=== PATIENT | male | born 1960 | race Caucasian/White ===

== ENCOUNTER 2017-01-08 12:45 | Emergency (ER) | payer MEDICARE, MEDICAID ==
[2017-01-08 13:20] VITALS: BP 149/77
[2017-01-08] MEDS ORDERED: cefTRIAXone 1 GM, Lidocaine 1% 2.1 ML IM ONE ×2 (13:24)
--- NOTE | 2017-01-08 13:51 | EDM.PDOC ---
ED HPI Skin/Rash - General Chief Complaint: Skin Complaint Stated Complaint: left upper arm redness Time Seen by Provider: 01/08/17 12:52 Source: Reports: Patient History Limitations: Reports: No limitations - History of Present Illness INITIAL COMMENTS - FREE TEXT/NARRATIVE: Patient had left sided AV fistula placed on 12/29/16 per his report. He reports that the incisions have always been red, but have started to worsen over the last several days. No fever or chills. Some swelling. No other complaints today. Has an appointment for staple removal tomorrow. Symptom Onset Date: 01/06/17 Timing: Reports: still present, worse Location, Skin: Reports: upper extremity, left Severity: mild Known Identified Source: possible/maybe Sick Contact: no Similar Symptoms Previously: no Recent Medical Care: yes - Related Data Allergies Allergy/AdvReac Type Severity Reaction Status Date / Time No Known Allergies Allergy Verified 01/08/17 13:17 Home Meds: Ambulatory Orders Medication Instructions Recorded Confirmed Aspirin [Halfprin] 81 mg PO DAILY 01/06/15 05/06/16 Hydrocodone/Acetaminophen [[place] 1 tab PO Q6H PRN 01/06/15 02/26/16 10-325] Labetalol [Normodyne] 2 tab PO BID 01/06/15 05/06/16 Lisinopril 1 tab PO DAILY 01/06/15 05/06/16 Pramipexole [Mirapex] 2 tab PO BEDTIME 01/06/15 05/06/16 Simvastatin [Zocor] 1 tab PO BEDTIME 01/06/15 05/06/16 amLODIPine [Norvasc] 1 tab PO DAILY 01/06/15 05/06/16 buPROPion HCl [Forfivo Xl] 1 tab PO DAILY 01/06/15 05/06/16 hydrALAZINE [Apresoline] 1 tab PO TID 01/06/15 05/06/16 traMADol HCl [Ultram] 2 tab PO Q6H PRN 01/06/15 05/06/16 Acetaminophen/Pamabrom [Cramp 1 each PO BID PRN 05/05/15 05/06/16 Tablet] Calcium Acetate 3 tab PO TID 05/06/16 05/06/16 Darbepoetin Jarod in Polysorbat 0 - 150 mcg IJ ASDIRECTED 05/06/16 05/06/16 [Aranesp] Doxercalciferol [Hectorol] 0 - 10 mcg IV ASDIRECTED 05/06/16 05/06/16 Ergocalciferol (Vitamin D2) 1 tab PO ASDIRECTED 05/06/16 05/06/16 [Vitamin D2] Melatonin 5 mg PO BEDTIME 05/06/16 05/06/16 Sodium Ferric Gluconat/Sucrose 0 - 125 mg IV ASDIRECTED 05/06/16 05/06/16 [Ferrlecit 62.5 mg/5 ml Vial] Triamcinolone Acetonide 5 gm DT ASDIRECTED 05/06/16 05/06/16 Vit B Cmplx NO3/Fa/C/Biot/Zinc 1 each PO DAILY 05/06/16 05/06/16 [Nephplex Rx] Past Medical History Cardiovascular History: Reports: Angina, CAD, Heart Failure, High cholesterol, Hypertension, PVD Respiratory History: Reports: Other (see below) Other Respiratory History: dyspnea Gastrointestinal History: Reports: GERD, Hepatitis, PUD Genitourinary History: Reports: Dialysis, Renal disease, Other (see below) Other Genitourinary History: proteinuria. CKD Stage V Musculoskeletal History: Reports: Back pain, chronic Neurological History: Reports: Neuropathy, diabetic Psychiatric History: Reports: Depression Endocrine/Metabolic History: Reports: Diabetes, type II Hematologic History: Reports: Anemia Dermatologic History: Reports: Eczema - Infectious Disease History Infectious Disease History: Reports: Hepatitis C - Past Surgical History Musculoskeletal Surgical History: Reports: Carpal tunnel, Other (see below) Other Musculoskeletal Surgeries/Procedures:: ulnar nerve entrapment R elbow Social & Family History - Tobacco Use Smoking Status *Q: Current Every Day Smoker Years of Tobacco use: 44 Packs/Tins Daily: 0.5 - Alcohol Use Days Per Week of Alcohol Use: 2 Number of Drinks Per Day: 1 Total Drinks Per Week: 2 - Recreational Drug Use Recreational Drug Use: Yes Drug Use in Last 12 Months: No Recreational Drug Type: Reports: Marijuana/Hashish ED ROS GENERAL - Review of Systems Review Of Systems: See Below Constitutional: Reports: no symptoms HEENT: Reports: No symptoms Respiratory: Reports: No Symptoms Cardiovascular: Reports: No symptoms Endocrine: Reports: no symptoms GI/Abdominal: Reports: No symptoms : Reports: no symptoms Musculoskeletal: Reports: arm pain Skin: Reports: erythema (left upper arm in 2 locations), wound Neurological: Reports: No Symptoms Psychiatric: Reports: No symptoms Hematologic/Lymphatic: Reports: no symptoms Immunologic: Reports: no symptoms ED EXAM, SKIN/RASH Exam: See Below Exam Limited By: No limitations General Appearance: alert, WD/WN, no apparent distress Eye Exam: bilateral eye: EOMI, PERRL Head: atraumatic, normocephalic Neck: normal inspection Respiratory/Chest: no respiratory distress, lungs clear, normal breath sounds, no accessory muscle use, chest non-tender Cardiovascular: normal peripheral pulses, regular rate, rhythm, no edema Peripheral Pulses: 2+: brachial (L) (left av fistula + for both bruit and thrill ), brachial (R) GI/Abdominal: normal bowel sounds, soft, non tender Back Exam: normal inspection, full range of motion Extremities: normal inspection, normal range of motion, non-tender, no pedal edema Neurological: alert, oriented, CN II-XII intact Skin: Warm, Dry, Intact, Erythema, Increased warmth, Wound/incision (left bicep area with two incisions - erythema, swelling) Lymphatic: no adenopathy Course - Vital Signs Last Recorded V/S: Last Vital Signs Temp 37.1 C 01/08/17 12:45 Pulse 93 01/08/17 12:45 Resp 20 01/08/17 12:45 BP 149/77 H 01/08/17 12:45 Pulse Ox - Orders/Labs/Meds Labs: Laboratory Tests 01/08/17 01/08/17 Range/Units 13:17 13:17 WBC 6.2 (4.0-10.0) x10^3/uL RBC 3.73 L (4.5-6.0) x10^6/uL Hgb 12.8 L (14.0-18.0) g/dL Hct 37.6 L (40.0-52.0) % MCV 100.8 H (78.0-93.0) fL MCH 34.3 H (26.0-32.0) pg MCHC 34.0 (32.0-36.0) g/dL RDW Coeff of Wale 13.3 (10.0-15.0) % Plt Count 87 L (130-400) x10^3/uL C-Reactive Protein 0.9 (<=0.9) mg/dL Meds: Medications Discontinued Medications Generic Name Dose Route Start Last Admin Trade Name Rory PRN Reason Stop Dose Admin Ceftriaxone Sodium 1 gm/ 0 gm 01/08/17 13:24 01/08/17 13:38 Lidocaine HCl 2.1 ml IM 01/08/17 13:25 1 inj ONETIME ONE Administration Departure - Departure Time of Disposition: 14:00 Disposition: Home, Self-Care 01 Condition: good Clinical Impression: Cellulitis Instructions: Cellulitis, Adult, [id number] Forms: ED Department Discharge Additional Instructions: Keep your appointment tomorrow for your staple removal. Follow up with your regular doctor and surgeon. You should follow up regarding the redness of your incision as well. I did start you on KEFLEX which is taken 4 times per day. Please call us with any questions or concerns. - Problem List & Annotations (1) Cellulitis SNOMED Code(s): 320198126 Code(s): L03.90 - CELLULITIS, UNSPECIFIED Status: Acute Priority: Medium Current Visit: Yes Qualifiers: Site of cellulitis of extremity: upper extremity Laterality: left - Problem List Review Problem List Initiated/Reviewed/Updated: Yes - Assessment/Plan Assessment:: Cellulitis left upper extremity Plan: Keep your appointment tomorrow for your staple removal. Follow up with your regular doctor and surgeon. You should follow up regarding the redness of your incision as well. I did start you on KEFLEX which is taken 4 times per day. Please call us with any questions or concerns.
== END 2017-01-08 13:10 | disposition home or self-care (01) ==
LOC: VM.ED 12:45
DX: L03.114 Cellulitis of left upper limb (principal); E78.00 Pure hypercholesterolemia, unspecified; K21.9 Gastro-esophageal reflux disease without esophagitis; I13.2 Hypertensive heart and chronic kidney disease with heart failure and with stage 5 chronic kidney disease, or end stage renal disease; I50.9 Heart failure, unspecified; N18.5 Chronic kidney disease, stage 5; E11.9 Type 2 diabetes mellitus without complications; F32.9 Major depressive disorder, single episode, unspecified; F17.210 Nicotine dependence, cigarettes, uncomplicated
CPT/HCPCS: 36415; 85027; 86140; 96372; 99283; J0696

== ENCOUNTER 2017-03-10 09:36 | Emergency (ER) | payer MEDICARE, MEDICAID ==
--- NOTE | 2017-03-10 09:51 | EDM.PDOC ---
ED HPI GENERAL MEDICAL PROBLEM - General Chief Complaint: Respiratory Problem Stated Complaint: SOB Time Seen by Provider: 03/10/17 09:39 Source of Information: Reports: Patient, RN, RN Notes Reviewed History Limitations: Reports: No Limitations - History of Present Illness INITIAL COMMENTS - FREE TEXT/NARRATIVE: Patient presents to the ED at [facility] with SOB and hypoxia. Patient was at his regular PCP office this AM and found to have low saturations. PCP requested for this patient to have further workup. Patient states he recently was treated for pneumonia. He denies any cough but does feel SOB. No chest pain. Admits to [place] with activity. Patient has CKD stage 5 and is scheduled for outpatient dialysis today. Patient states he has significant swelling around both eyes. He states he noticed the swelling when he awoke this AM. Patient currently denies any pain. No GI complaints. No focal neurological deficits. Onset: Today Left Lower Back Pain Score (Numeric/FACES): 3 - Related Data Allergies Allergy/AdvReac Type Severity Reaction Status Date / Time No Known Allergies Allergy Verified 03/10/17 10:02 Home Meds: Home Meds Aspirin [Halfprin] 81 mg PO DAILY 01/06/15 [History] Labetalol [Normodyne] 200 mg PO BID 01/06/15 [History] Lisinopril 20 mg PO DAILY 01/06/15 [History] Simvastatin [Zocor] 1 tab PO BEDTIME 01/06/15 [History] Acetaminophen/Pamabrom [Cramp Tablet] 1 each PO BID PRN 05/05/15 [History] Calcium Acetate 3 tab PO TID 05/06/16 [History] Darbepoetin Jarod in Polysorbat [Aranesp] 0 - 150 mcg IJ ASDIRECTED 05/06/16 [ History] Doxercalciferol [Hectorol] 0 - 10 mcg IV ASDIRECTED 05/06/16 [History] Ergocalciferol (Vitamin D2) [Vitamin D2] 1 tab PO ASDIRECTED 05/06/16 [History] Melatonin 5 mg PO BEDTIME 05/06/16 [History] Sodium Ferric Gluconat/Sucrose [Ferrlecit 62.5 mg/5 ml Vial] 0 - 125 mg IV ASDIRECTED 05/06/16 [History] Triamcinolone Acetonide 1 applic TOP DAILY 05/06/16 [History] Vit B Cmplx NO3/Fa/C/Biot/Zinc [Nephplex Rx] 1 each PO DAILY 05/06/16 [History] Elbasvir/Grazoprevir [Zepatier 50-100 mg Tablet] 1 tab PO DAILY 02/28/17 [ History] Pregabalin [Lyrica] 75 mg PO BID 02/28/17 [History] prednisoLONE Acetate [Pred Forte 1% Ophth Susp] 1 drop EYELF DAILY 02/28/17 [ History] Olmesartan [Benicar] 5 mg PO DAILY 03/10/17 [History] Pramipexole [Mirapex] 0.5 mg PO BEDTIME 03/10/17 [History] buPROPion [Wellbutrin XL] 150 mg PO DAILY 03/10/17 [History] hydrALAZINE HCl [Hydralazine HCl] 100 mg PO TID 03/10/17 [History] Past Medical History Cardiovascular History: Reports: Angina, CAD, Heart Failure, High Cholesterol, Hypertension, PVD Respiratory History: Reports: Other (See Below) Other Respiratory History: dyspnea Gastrointestinal History: Reports: GERD, Hepatitis, PUD Genitourinary History: Reports: Dialysis, Renal Disease, Other (See Below) Other Genitourinary History: proteinuria. CKD Stage V Musculoskeletal History: Reports: Back Pain, Chronic Neurological History: Reports: Neuropathy, Diabetic Psychiatric History: Reports: Depression Endocrine/Metabolic History: Reports: Diabetes, Type II Hematologic History: Reports: Anemia Dermatologic History: Reports: Eczema - Infectious Disease History Infectious Disease History: Reports: Hepatitis C - Past Surgical History Musculoskeletal Surgical History: Reports: Carpal Tunnel, Other (See Below) Social & Family History - Tobacco Use Smoking Status *Q: Current Every Day Smoker Years of Tobacco use: 44 Packs/Tins Daily: 0.5 - Alcohol Use Days Per Week of Alcohol Use: 2 Number of Drinks Per Day: 1 Total Drinks Per Week: 2 - Recreational Drug Use Recreational Drug Use: Yes Drug Use in Last 12 Months: No Recreational Drug Type: Reports: Marijuana/Hashish ED ROS GENERAL - Review of Systems Review Of Systems: See Below Constitutional: Denies: Fever, Chills, Weakness Respiratory: Reports: Shortness of Breath. Denies: Cough, Sputum Cardiovascular: Reports: Dyspnea on Exertion. Denies: Chest Pain, Palpitations GI/Abdominal: Denies: Abdominal Pain, Nausea, Vomiting Skin: Reports: No Symptoms Neurological: Reports: No Symptoms. Denies: Headache ED EXAM, GENERAL - Physical Exam Exam: See Below Exam Limited By: No Limitations General Appearance: Alert, No Apparent Distress Eye Exam: Bilateral Eye: EOMI, Normal Inspection, PERRL Respiratory/Chest: No Respiratory Distress, Decreased Breath Sounds Cardiovascular: Regular Rate, Rhythm, Other (chronic BLE venous statsis ulcers; some open areas on lower legs; left hand swelling; +2 BLE edema) GI/Abdominal: Soft, Non-Tender, Abnormal Bowel Sounds (Hypoactive) Extremities: Pedal Edema Neurological: Alert, Oriented Skin Exam: Warm, Dry, Normal Color, No Rash, Other (scattered open sores on lower legs and arms) EKG INTERPRETATION EKG Date: 03/10/17 Time: 10:45 Rhythm: NSR Rate (beats/min): 78 [place]: normal P-wave: present QRS: normal ST-T: depressed QT: normal [place]/PQ Interval: 0.21 EKG Interpretation Comments: 1. Sinus Rhythm 2. Minimal ST depression (0.025+ mV ST depression) Course - Vital Signs Last Recorded V/S: Last Vital Signs Temp 35.9 C 03/10/17 09:36 Pulse 84 03/10/17 09:36 Resp 20 03/10/17 09:36 BP 162/78 H 03/10/17 09:36 Pulse Ox 85 L 03/10/17 09:36 - Orders/Labs/Meds Orders: Active Orders 24 hr Category Date Time Status EKG 12 Lead [EKG Documentation Completion] [RC] STAT Care 03/10/17 10:14 Active Chest 2V [CR] Stat Exams 03/10/17 09:53 Taken DRUG SCREEN, URINE [URCHEM] Stat Lab 03/10/17 09:53 Uncollected UA W/MICROSCOPIC [URIN] Stat Lab 03/10/17 09:53 Uncollected Sodium Chloride 0.9% [Saline Flush] Med 03/10/17 09:52 Active 10 ml FLUSH ASDIRECTED PRN Peripheral IV Insertion Adult [OM.PC] Routine Oth 03/10/17 09:52 Ordered Medication Orders Sodium Chloride (Saline Flush) 10 ml FLUSH ASDIRECTED PRN PRN Reason: Keep Vein Open Labs: Laboratory Tests 03/10/17 03/10/17 03/10/17 Range/Units 10:00 10:00 10:00 WBC 9.2 (4.0-10.0) x10^3/uL RBC 3.35 L (4.5-6.0) x10^6/uL Hgb 11.3 L D (14.0-18.0) g/dL Hct 35.0 L (40.0-52.0) % MCV 104.5 H D (78.0-93.0) fL MCH 33.7 H (26.0-32.0) pg MCHC 32.3 (32.0-36.0) g/dL RDW Coeff of Wale 13.2 (10.0-15.0) % Plt Count 107 L (130-400) x10^3/uL Add Manual Diff Yes Neutrophils % (Manual) 89 H (50-80) % Band Neutrophils % 1 (0-6) % Lymphocytes % (Manual) 10 L (25-50) % Platelet Estimate Decreased L Macrocytosis 1+ slight H D-Dimer, Quantitative 2.85 H (<=0.58) mg/LFEU POC ABG pH (7.35-7.45) POC ABG pCO2 (35-45) mmHG POC ABG pO2 (80-105) mmHG POC ABG HCO3 (22-26) mmol/L POC ABG Total CO2 (23-27) mmol/L POC ABG O2 Sat (95-98) % POC ABG Base Excess (-2-3) mmol/L POC FiO2 Sodium 142 (136-145) mmol/L Potassium 4.0 (3.5-5.1) mmol/L Chloride 100 (98-107) mmol/L Carbon Dioxide 29 (21-32) mmol/L BUN 49 H D (7-18) mg/dL Creatinine 8.7 H* D (0.70-1.30) mg/dL Est Cr Clr Drug Dosing 9.17 mL/min Estimated GFR (MDRD) 6 Glucose 132 H (74-106) mg/dL Lactic Acid (0.4-2.0) mmol/L Calcium 8.2 L (8.5-10.1) mg/dL Corrected Calcium 8.60 (8.5-10.1) mg/dL Total Bilirubin 0.4 (0.2-1.0) mg/dL AST 29 (15-37) U/L ALT 30 (16-63) U/L Alkaline Phosphatase 151 H (46-116) U/L Creatine Kinase (39-308) U/L Creatine Kinase Index (0.0-4.0) % CK-MB (CK-2) (0.0-3.6) ng/mL Troponin I (<=0.056) ng/mL C-Reactive Protein 1.0 H (<=0.9) mg/dL B-Natriuretic Peptide 6923 H (<=125) pg/mL Total Protein 8.1 (6.4-8.2) g/dL Albumin 3.5 (3.4-5.0) g/dL Globulin 4.6 Albumin/Globulin Ratio 0.76 POC Result Comm Ethyl Alcohol < 3 (0-3) mg/dL 03/10/17 03/10/17 03/10/17 Range/Units 10:00 10:00 10:22 WBC (4.0-10.0) x10^3/uL RBC (4.5-6.0) x10^6/uL Hgb (14.0-18.0) g/dL Hct (40.0-52.0) % MCV (78.0-93.0) fL MCH (26.0-32.0) pg MCHC (32.0-36.0) g/dL RDW Coeff of Wale (10.0-15.0) % Plt Count (130-400) x10^3/uL Add Manual Diff Neutrophils % (Manual) (50-80) % Band Neutrophils % (0-6) % Lymphocytes % (Manual) (25-50) % Platelet Estimate Macrocytosis D-Dimer, Quantitative (<=0.58) mg/LFEU POC ABG pH 7.373 (7.35-7.45) POC ABG pCO2 54 H (35-45) mmHG POC ABG pO2 45 L* (80-105) mmHG POC ABG HCO3 32 H (22-26) mmol/L POC ABG Total CO2 33 H (23-27) mmol/L POC ABG O2 Sat 78 L (95-98) % POC ABG Base Excess 6 H (-2-3) mmol/L POC FiO2 0.21 Sodium (136-145) mmol/L Potassium (3.5-5.1) mmol/L Chloride (98-107) mmol/L Carbon Dioxide (21-32) mmol/L BUN (7-18) mg/dL Creatinine (0.70-1.30) mg/dL Est Cr Clr Drug Dosing mL/min Estimated GFR (MDRD) Glucose (74-106) mg/dL Lactic Acid 1.2 (0.4-2.0) mmol/L Calcium (8.5-10.1) mg/dL Corrected Calcium (8.5-10.1) mg/dL Total Bilirubin (0.2-1.0) mg/dL AST (15-37) U/L ALT (16-63) U/L Alkaline Phosphatase (46-116) U/L Creatine Kinase 295 (39-308) U/L Creatine Kinase Index 2.3 (0.0-4.0) % CK-MB (CK-2) 6.9 H (0.0-3.6) ng/mL Troponin I 0.027 (<=0.056) ng/mL C-Reactive Protein (<=0.9) mg/dL B-Natriuretic Peptide (<=125) pg/mL Total Protein (6.4-8.2) g/dL Albumin (3.4-5.0) g/dL Globulin Albumin/Globulin Ratio POC Result Comm Called critical res Ethyl Alcohol (0-3) mg/dL Meds: Medications Generic Name Dose Route Start Last Admin Trade Name Freq PRN Reason Stop Dose Admin Sodium Chloride 10 ml 03/10/17 09:52 Saline Flush FLUSH ASDIRECTED PRN Keep Vein Open Departure - Departure Time of Disposition: 11:44 Disposition: Against Medical Advice 07 Condition: serious Clinical Impression: Hypoxia, Chronic kidney disease on chronic dialysis Heart failure Qualifiers: Heart failure type: combined Heart failure chronicity: acute on chronic Qualified Code(s): I50.43 - Acute on chronic combined systolic (congestive) and diastolic (congestive) heart failure Fluid overload Qualifiers: Hypervolemia type: unspecified Qualified Code(s): E87.70 - Fluid overload, unspecified - Discharge Information Referrals: Elizabet Silverio MD [Primary Care Provider] - Forms: Refusal of Care AMA - Problem List Review Problem List Initiated/Reviewed/Updated: Yes - My Orders Last 24 Hours: My Active Orders 03/10/17 09:52 Sodium Chloride 0.9% [Saline Flush] 10 ml FLUSH ASDIRECTED PRN Peripheral IV Insertion Adult [OM.PC] Routine 03/10/17 09:53 Chest 2V [CR] Stat DRUG SCREEN, URINE [URCHEM] Stat UA W/MICROSCOPIC [URIN] Stat 03/10/17 10:14 EKG 12 Lead [EKG Documentation Completion] [RC] STAT - Assessment/Plan Last 24 Hours: My Active Orders 03/10/17 09:52 Sodium Chloride 0.9% [Saline Flush] 10 ml FLUSH ASDIRECTED PRN Peripheral IV Insertion Adult [OM.PC] Routine 03/10/17 09:53 Chest 2V [CR] Stat DRUG SCREEN, URINE [URCHEM] Stat UA W/MICROSCOPIC [URIN] Stat 03/10/17 10:14 EKG 12 Lead [EKG Documentation Completion] [RC] STAT Plan: Thoroughly and extensively discussed labs, EKG, xray with patient. Discussed the need to have dialysis today due to critical nature of his low oxygen levels. Patient refused transfer to a higher level of care. He wishes to go home. Discussed the adverse problems without dialysis today, such as [place], cardiac arrest, respiratory arrest, and . Patient verbalized understanding and wishes to be discharge home.
[2017-03-10] MEDS ORDERED: Sodium Chloride 0.9% 10 ML Syringe FLUSH PRN (09:52)
[2017-03-10 11:01] LABS: CHLORIDE,CL 100 mmol/L (98-107); SODIUM,NA 142 mmol/L (136-145)
[2017-03-10 12:11] VITALS: BP 150/66
== END 2017-03-10 13:05 | disposition left against medical advice (07) ==
LOC: VM.ED 09:36
DX: I13.2 Hypertensive heart and chronic kidney disease with heart failure and with stage 5 chronic kidney disease, or end stage renal disease (principal); I50.43 Acute on chronic combined systolic (congestive) and diastolic (congestive) heart failure; N18.5 Chronic kidney disease, stage 5; E87.70 Fluid overload, unspecified; R09.02 Hypoxemia; E78.00 Pure hypercholesterolemia, unspecified; K21.9 Gastro-esophageal reflux disease without esophagitis; I25.10 Atherosclerotic heart disease of native coronary artery without angina pectoris; F32.9 Major depressive disorder, single episode, unspecified; E11.9 Type 2 diabetes mellitus without complications; F17.210 Nicotine dependence, cigarettes, uncomplicated; Z98.890 Other specified postprocedural states; Z86.2 Personal history of diseases of the blood and blood-forming organs and certain disorders involving the immune mechanism; Z79.82 Long term (current) use of aspirin; Z99.2 Dependence on renal dialysis; Z79.899 Other long term (current) drug therapy
CPT/HCPCS: 36415; 36600; 71020; 80053; 82550; 82553; 82803; 83605; 83880; 84484; 85025; 85379; 86140; 93005; 99285; G0480; 99284-GF

== ENCOUNTER 2017-06-21 20:17 | Emergency (ER) | payer MEDICARE, MEDICAID ==
[2017-06-21] MEDS ORDERED: Sodium Chloride 0.9% 10 ML Syringe FLUSH PRN (20:25)
--- NOTE | 2017-06-21 21:07 | EDM.PDOC ---
ED HPI GENERAL MEDICAL PROBLEM - General Chief Complaint: Abdominal Pain Stated Complaint: abdominal pain with radiation into back Time Seen by Provider: 06/21/17 20:20 Source of Information: Reports: Patient History Limitations: Reports: No Limitations - History of Present Illness INITIAL COMMENTS - FREE TEXT/NARRATIVE: Pt. presents to ER with a 4 days history of abdominal pain with radiation into the back. Pt. has a history of ESRD and is currently undergoing triweekly hemodialyis at the [facility] in [place]. Pt. states that he had a dialysis run earlier today. Pt. states that the pain in located in his lower abdomen and radiates into his mid/lower back. He states that he has not been experiencing any fever or chills. He states that his last BM was approx. 4 days ago as well. Pt. also has a history of chronic low back pain. He denies any saddle anesthesia or fecal/urinary incontinence. Onset: Gradual, Other (4 days ago) Onset Date: 06/17/17 Location: Reports: Abdomen, Back (lower abdominal pain with radiation into mid to low back) Quality: Reports: Same as Previous Episode Severity: Severe Improves with: Reports: None Associated Symptoms: Reports: No Other Symptoms Back Pain Score (Numeric/FACES): 10 - Related Data Allergies Allergy/AdvReac Type Severity Reaction Status Date / Time No Known Allergies Allergy Verified 06/21/17 20:20 Home Meds: Home Meds Aspirin [Halfprin] 81 mg PO DAILY 01/06/15 [History] Labetalol [Normodyne] 200 mg PO BID 01/06/15 [History] Lisinopril 20 mg PO DAILY 01/06/15 [History] Simvastatin [Zocor] 1 tab PO BEDTIME 01/06/15 [History] Acetaminophen/Pamabrom [Cramp Tablet] 1 each PO BID PRN 05/05/15 [History] Calcium Acetate 3 tab PO TID 05/06/16 [History] Darbepoetin Jarod in Polysorbat [Aranesp] 0 - 150 mcg IJ ASDIRECTED 05/06/16 [ History] Doxercalciferol [Hectorol] 0 - 10 mcg IV ASDIRECTED 05/06/16 [History] Ergocalciferol (Vitamin D2) [Vitamin D2] 1 tab PO ASDIRECTED 05/06/16 [History] Melatonin 5 mg PO BEDTIME 05/06/16 [History] Sodium Ferric Gluconat/Sucrose [Ferrlecit 62.5 mg/5 ml Vial] 0 - 125 mg IV ASDIRECTED 05/06/16 [History] Triamcinolone Acetonide 1 applic TOP DAILY 05/06/16 [History] Vit B Cmplx NO3/Fa/C/Biot/Zinc [Nephplex Rx] 1 each PO DAILY 05/06/16 [History] Pregabalin [Lyrica] 75 mg PO BID 02/28/17 [History] prednisoLONE Acetate [Pred Forte 1% Ophth Susp] 1 drop EYELF DAILY 02/28/17 [ History] Pramipexole [Mirapex] 0.5 mg PO BEDTIME 03/10/17 [History] buPROPion [Wellbutrin XL] 150 mg PO DAILY 03/10/17 [History] hydrALAZINE HCl [Hydralazine HCl] 100 mg PO TID 03/10/17 [History] tiZANidine HCl [Tizanidine HCl] 2 mg PO ASDIRECTED PRN 06/21/17 [History] Past Medical History Cardiovascular History: Reports: Angina, CAD, Heart Failure, High Cholesterol, Hypertension, PVD Respiratory History: Reports: Other (See Below) Other Respiratory History: dyspnea Gastrointestinal History: Reports: GERD, Hepatitis, PUD Genitourinary History: Reports: Dialysis, Renal Disease, Other (See Below) Other Genitourinary History: proteinuria. CKD Stage V Musculoskeletal History: Reports: Back Pain, Chronic Neurological History: Reports: Neuropathy, Diabetic Psychiatric History: Reports: Depression Endocrine/Metabolic History: Reports: Diabetes, Type II Hematologic History: Reports: Anemia Dermatologic History: Reports: Eczema - Infectious Disease History Infectious Disease History: Reports: Hepatitis C - Past Surgical History Musculoskeletal Surgical History: Reports: Carpal Tunnel Social & Family History - Tobacco Use Smoking Status *Q: Current Every Day Smoker Years of Tobacco use: 45 Packs/Tins Daily: 0.1 - Alcohol Use Days Per Week of Alcohol Use: 2 Number of Drinks Per Day: 1 Total Drinks Per Week: 2 - Recreational Drug Use Recreational Drug Use: Yes Drug Use in Last 12 Months: No Recreational Drug Type: Reports: Marijuana/Hashish ED ROS GENERAL - Review of Systems Review Of Systems: See Below Constitutional: Reports: Fever (Denies fever or chills; febrile in ER today. Has not been checking temp. Has had fever after dialysis in the past.) HEENT: Reports: No Symptoms Respiratory: Reports: No Symptoms, Shortness of Breath (ESRD, COPD and CHF history, has chronic dyspnea) Cardiovascular: Reports: No Symptoms Endocrine: Reports: No Symptoms GI/Abdominal: Reports: Abdominal Pain (last BM approx. 4 days ago), Constipation : Reports: No Symptoms Musculoskeletal: Reports: Back Pain (States pain radiates into mid/lower back but has a history of chronic back pain) Skin: Reports: Dryness, Bruising (Chronic, on dialysis) Neurological: Reports: No Symptoms Psychiatric: Reports: No Symptoms Hematologic/Lymphatic: Reports: No Symptoms Immunologic: Reports: No Symptoms ED EXAM, GI/ABD - Physical Exam Exam: See Below Exam Limited By: No Limitations General Appearance: Alert, No Apparent Distress Ears: Normal External Exam, Hearing Grossly Normal, Normal TMs Nose: Normal Inspection Throat/Mouth: Normal Inspection, Normal Oropharynx, No Airway Compromise Head: Atraumatic, Normocephalic Neck: Normal Inspection, Supple, Non-Tender Respiratory/Chest: No Respiratory Distress, Lungs Clear, No Accessory Muscle Use , Decreased Breath Sounds Cardiovascular: Regular Rate, Rhythm GI/Abdominal Exam: Normal Bowel Sounds, Soft, No Distention, Tender (diffusely tender, particularly in the lower quadrants) Back Exam: Normal Inspection, CVA Tenderness (L), Muscle Spasm, Paraspinal Tenderness Neurological: Alert, Oriented, CN II-XII Intact, Normal Cognition Skin Exam: Warm, Dry Lymphatic: No Adenopathy Course - Vital Signs Last Recorded V/S: Last Vital Signs Temp 38.7 C H 06/21/17 22:05 Pulse 113 H 06/21/17 22:05 Resp 20 06/21/17 22:05 BP 131/72 06/21/17 22:05 Pulse Ox 84 L 06/21/17 22:05 - Orders/Labs/Meds Orders: Active Orders 24 hr Category Date Time Status Abdomen Series w Chest 1V [CR] Stat Exams 06/21/17 20:26 Taken CULTURE BLOOD [BC] Stat Lab 06/21/17 20:58 Results CULTURE BLOOD [BC] Stat Lab 06/21/17 21:04 Received Blood Culture x2 Reflex Set [OM.PC] Stat Oth 06/21/17 20:26 Ordered Peripheral IV Insertion Adult [OM.PC] Routine Oth 06/21/17 20:26 Ordered Labs: Laboratory Tests 06/21/17 06/21/17 06/21/17 Range/Units 20:58 20:58 20:58 WBC 9.5 (4.0-10.0) x10^3/uL RBC 3.80 L (4.5-6.0) x10^6/uL Hgb 12.8 L D (14.0-18.0) g/dL Hct 37.8 L (40.0-52.0) % MCV 99.5 H D (78.0-93.0) fL MCH 33.7 H (26.0-32.0) pg MCHC 33.9 (32.0-36.0) g/dL RDW Coeff of Wale 12.9 (10.0-15.0) % Plt Count 134 (130-400) x10^3/uL Neut % (Auto) 80.3 H (50.0-80.0) % Lymph % (Auto) 10.0 L (25.0-50.0) % Spink % (Auto) 8.5 (2.0-11.0) % Eos % (Auto) 0.9 (0.0-4.0) % Baso % (Auto) 0.3 (0.2-1.2) % PT 11.5 (9.8-11.8) SEC INR 1.1 L (2.0-3.5) Sodium 138 (136-145) mmol/L Potassium 3.5 (3.5-5.1) mmol/L Chloride 94 L (98-107) mmol/L Carbon Dioxide 33 H (21-32) mmol/L BUN 17 D (7-18) mg/dL Creatinine 4.5 H* D (0.70-1.30) mg/dL Est Cr Clr Drug Dosing 17.73 mL/min Estimated GFR (MDRD) 14 Glucose 127 H (74-106) mg/dL Lactic Acid (0.4-2.0) mmol/L Calcium 9.1 (8.5-10.1) mg/dL Corrected Calcium 9.82 (8.5-10.1) mg/dL Total Bilirubin 0.6 (0.2-1.0) mg/dL AST 16 (15-37) U/L ALT 18 (16-63) U/L Alkaline Phosphatase 132 H (46-116) U/L Troponin I Cancelled C-Reactive Protein 25.1 H (<=0.9) mg/dL Total Protein 8.5 H (6.4-8.2) g/dL Albumin 3.1 L (3.4-5.0) g/dL Globulin 5.4 Albumin/Globulin Ratio 0.57 Urine Color (YELLOW) POC Urine Appearance (CLEAR) POC Urine pH (5.0-8.0) Ur Specific [place] (1.005-1.030) POC Urine Protein (NEGATIVE) POC Ur Glucose (UA) (NEGATIVE) POC Urine Ketones (NEGATIVE) POC Ur Occult Blood (NEGATIVE) POC Urine Nitrite (NEGATIVE) POC Urine Bilirubin (NEGATIVE) POC Urine Urobilinogen (0.2) POC U Leukocyte Esteras (NEGATIVE) 06/21/17 06/21/17 Range/Units 20:58 23:04 WBC (4.0-10.0) x10^3/uL RBC (4.5-6.0) x10^6/uL Hgb (14.0-18.0) g/dL Hct (40.0-52.0) % MCV (78.0-93.0) fL MCH (26.0-32.0) pg MCHC (32.0-36.0) g/dL RDW Coeff of Wale (10.0-15.0) % Plt Count (130-400) x10^3/uL Neut % (Auto) (50.0-80.0) % Lymph % (Auto) (25.0-50.0) % Spink % (Auto) (2.0-11.0) % Eos % (Auto) (0.0-4.0) % Baso % (Auto) (0.2-1.2) % PT (9.8-11.8) SEC INR (2.0-3.5) Sodium (136-145) mmol/L Potassium (3.5-5.1) mmol/L Chloride (98-107) mmol/L Carbon Dioxide (21-32) mmol/L BUN (7-18) mg/dL Creatinine (0.70-1.30) mg/dL Est Cr Clr Drug Dosing mL/min Estimated GFR (MDRD) Glucose (74-106) mg/dL Lactic Acid 1.4 (0.4-2.0) mmol/L Calcium (8.5-10.1) mg/dL Corrected Calcium (8.5-10.1) mg/dL Total Bilirubin (0.2-1.0) mg/dL AST (15-37) U/L ALT (16-63) U/L Alkaline Phosphatase (46-116) U/L Troponin I C-Reactive Protein (<=0.9) mg/dL Total Protein (6.4-8.2) g/dL Albumin (3.4-5.0) g/dL Globulin Albumin/Globulin Ratio Urine Color Yellow (YELLOW) POC Urine Appearance Cloudy H (CLEAR) POC Urine pH 6.0 (5.0-8.0) Ur Specific [place] 1.030 (1.005-1.030) POC Urine Protein 300 H (NEGATIVE) POC Ur Glucose (UA) Negative (NEGATIVE) POC Urine Ketones Negative (NEGATIVE) POC Ur Occult Blood Trace H (NEGATIVE) POC Urine Nitrite Negative (NEGATIVE) POC Urine Bilirubin Negative (NEGATIVE) POC Urine Urobilinogen 0.2 (0.2) POC U Leukocyte Esteras Moderate H (NEGATIVE) Meds: Medications Discontinued Medications Generic Name Dose Route Start Last Admin Trade Name Freq PRN Reason Stop Dose Admin Sodium Chloride 250 mls @ 1,000 mls/hr 06/21/17 21:32 06/21/17 21:40 Normal Saline IV 06/21/17 21:46 1,000 mls/hr .BOLUS ONE Administration Levofloxacin 750 mg 06/21/17 23:09 06/21/17 23:15 Levaquin PO 06/21/17 23:10 750 mg ONETIME ONE Administration Morphine Sulfate 4 mg 06/21/17 21:33 06/21/17 21:43 Morphine IVPUSH 06/21/17 21:34 4 mg ONETIME ONE Administration Sodium Chloride 10 ml 06/21/17 20:25 Saline Flush FLUSH ASDIRECTED PRN Keep Vein Open - Radiology Interpretation Free Text/Narrative:: 1 view chest x-ray revealed bibasilar atelectasis. flat and upright abdominal x-ray revealed non-specific bowel-gas pattern with no air-fluid levels or evidence of obstruction. - Re-Assessments/Exams Free Text/Narrative Re-Assessment/Exam: 06/21/17 23:27 Pt. was noted to have moderate leukocyte esterase in his urine. He was given a 250ml fluid bolus. He was given Morphine 4mg IV for pain control. Pain decreased from >10 to 5. Departure - Departure Time of Disposition: 23:29 Disposition: Home, Self-Care 01 Condition: Fair Clinical Impression: Cystitis, acute - Discharge Information Instructions: Urinary Tract Infection, Adult, [id number] Referrals: Elizabet Silverio MD [Primary Care Provider] - Forms: ED Department Discharge Additional Instructions: Start levaquin 500mg in 48 hours (Monday after diaysis run). Take every 48 hours until gone (total for 4 doses). - My Orders Last 24 Hours: My Active Orders 06/21/17 20:26 Abdomen Series w Chest 1V [CR] Stat Blood Culture x2 Reflex Set [OM.PC] Stat Peripheral IV Insertion Adult [OM.PC] Routine 06/21/17 20:58 CULTURE BLOOD [BC] Stat 06/21/17 21:04 CULTURE BLOOD [BC] Stat - Assessment/Plan Last 24 Hours: My Active Orders 06/21/17 20:26 Abdomen Series w Chest 1V [CR] Stat Blood Culture x2 Reflex Set [OM.PC] Stat Peripheral IV Insertion Adult [OM.PC] Routine 06/21/17 20:58 CULTURE BLOOD [BC] Stat 06/21/17 21:04 CULTURE BLOOD [BC] Stat Assessment:: Acute cystitis (complicated) Plan: Pt. was given first dose of renally dosed levaquin in ER (750mg x1). Start levaquin 500mg every 48 hours starting Monday after dialysis run. Pt. advised not to fill the Tizanidine he was prescribed for back muscle spasms. Follow-up in clinic in 7-10 days. Start miralax 1 capful every day with a large glass of water. Return to ER if you have worsening discomfort, lightheadedness, weakness.
[2017-06-21] MEDS ORDERED: Sodium Chloride 0.9% 250 ML IV ONE (21:32)
[2017-06-21] MEDS ORDERED: Morphine 4 MG/ML Syringe IVPUSH ONE (21:33)
[2017-06-21 22:06] VITALS: BP 131/72
[2017-06-21] MEDS ORDERED: Levofloxacin 500 MG Tab PO ONE (23:09)
== END 2017-06-21 23:25 | disposition home or self-care (01) ==
LOC: VM.ED 20:17
DX: N30.00 Acute cystitis without hematuria (principal); F17.210 Nicotine dependence, cigarettes, uncomplicated; I13.0 Hypertensive heart and chronic kidney disease with heart failure and stage 1 through stage 4 chronic kidney disease, or unspecified chronic kidney disease; E11.22 Type 2 diabetes mellitus with diabetic chronic kidney disease; N18.4 Chronic kidney disease, stage 4 (severe); F32.9 Major depressive disorder, single episode, unspecified; K21.9 Gastro-esophageal reflux disease without esophagitis; Z99.2 Dependence on renal dialysis; Z86.2 Personal history of diseases of the blood and blood-forming organs and certain disorders involving the immune mechanism; Z79.82 Long term (current) use of aspirin; Z79.899 Other long term (current) drug therapy
CPT/HCPCS: 36415; 74022; 80053; 81002; 83605; 84484; 85025; 85610; 86140; 87040; 87077; 96374; 99284; A9270; J2270; J7030; 87147; 87186

== ENCOUNTER 2017-06-22 22:18 | Emergency (ER) | payer MEDICARE, MEDICAID ==
[2017-06-22] MEDS ORDERED: Sodium Chloride 0.9% 10 ML Syringe FLUSH PRN (22:23)
[2017-06-22 22:29] VITALS: BP 136/62
[2017-06-22] MEDS ORDERED: Sodium Chloride 0.9% 1,000 ML IV SCH (22:30)
--- NOTE | 2017-06-22 22:39 | EDM.PDOC ---
ED HPI GENERAL MEDICAL PROBLEM - General Chief Complaint: General Stated Complaint: general/possible sepsis Time Seen by Provider: 06/22/17 22:19 Source of Information: Reports: Patient History Limitations: Reports: No Limitations - History of Present Illness INITIAL COMMENTS - FREE TEXT/NARRATIVE: Patient returns to the emergency room with continuing complaints of abdominal pain radiating to his back. Patient was seen last night by Marcial Vasquez for similar symptoms and treated for UTI/possible pyelonephritis. He does have end stage renal disease. Blood cultures today were positive with gram positive cocci. Marcial did call to talk with [facility] and visited with Dr. Mccracken in nephrology. He advised to call the patient and have him drive to [place] and be seen in the ER there and admitted. We were finally able to reach him this evening at around 8:30 pm. He was not feeling well enough to drive to [place], so he was advised to come to the ER here where we have started him on IV Vancomycin at 1.[address] Mccracken's advice. Onset: Other Location: Reports: Abdomen, Back Worsens with: Reports: Movement - Related Data Allergies Allergy/AdvReac Type Severity Reaction Status Date / Time No Known Allergies Allergy Verified 06/21/17 20:20 Home Meds: Home Meds Aspirin [Halfprin] 81 mg PO DAILY 01/06/15 [History] Labetalol [Normodyne] 200 mg PO BID 01/06/15 [History] Lisinopril 20 mg PO DAILY 01/06/15 [History] Simvastatin [Zocor] 1 tab PO BEDTIME 01/06/15 [History] Acetaminophen/Pamabrom [Cramp Tablet] 1 each PO BID PRN 05/05/15 [History] Calcium Acetate 3 tab PO TID 05/06/16 [History] Darbepoetin Jarod in Polysorbat [Aranesp] 0 - 150 mcg IJ ASDIRECTED 05/06/16 [ History] Doxercalciferol [Hectorol] 0 - 10 mcg IV ASDIRECTED 05/06/16 [History] Ergocalciferol (Vitamin D2) [Vitamin D2] 1 tab PO ASDIRECTED 05/06/16 [History] Melatonin 5 mg PO BEDTIME 05/06/16 [History] Sodium Ferric Gluconat/Sucrose [Ferrlecit 62.5 mg/5 ml Vial] 0 - 125 mg IV ASDIRECTED 05/06/16 [History] Triamcinolone Acetonide 1 applic TOP DAILY 05/06/16 [History] Vit B Cmplx NO3/Fa/C/Biot/Zinc [Nephplex Rx] 1 each PO DAILY 05/06/16 [History] Pregabalin [Lyrica] 75 mg PO BID 02/28/17 [History] prednisoLONE Acetate [Pred Forte 1% Ophth Susp] 1 drop EYELF DAILY 02/28/17 [ History] Pramipexole [Mirapex] 0.5 mg PO BEDTIME 03/10/17 [History] buPROPion [Wellbutrin XL] 150 mg PO DAILY 03/10/17 [History] hydrALAZINE HCl [Hydralazine HCl] 100 mg PO TID 03/10/17 [History] tiZANidine HCl [Tizanidine HCl] 2 mg PO ASDIRECTED PRN 06/21/17 [History] Past Medical History Cardiovascular History: Reports: Angina, CAD, Heart Failure, High Cholesterol, Hypertension, PVD Respiratory History: Reports: Other (See Below) Other Respiratory History: dyspnea Gastrointestinal History: Reports: GERD, Hepatitis, PUD Genitourinary History: Reports: Dialysis, Renal Disease, Other (See Below) Other Genitourinary History: proteinuria. CKD Stage V Musculoskeletal History: Reports: Back Pain, Chronic Neurological History: Reports: Neuropathy, Diabetic Psychiatric History: Reports: Depression Endocrine/Metabolic History: Reports: Diabetes, Type II Hematologic History: Reports: Anemia Dermatologic History: Reports: Eczema - Infectious Disease History Infectious Disease History: Reports: Hepatitis C - Past Surgical History Musculoskeletal Surgical History: Reports: Carpal Tunnel, Other (See Below) Social & Family History - Tobacco Use Smoking Status *Q: Current Every Day Smoker Years of Tobacco use: 44 Packs/Tins Daily: 0.5 - Alcohol Use Days Per Week of Alcohol Use: 2 Number of Drinks Per Day: 1 Total Drinks Per Week: 2 - Recreational Drug Use Recreational Drug Use: Yes Drug Use in Last 12 Months: No Recreational Drug Type: Reports: Marijuana/Hashish ED ROS GENERAL - Review of Systems Review Of Systems: See Below Constitutional: Reports: Fever HEENT: Reports: No Symptoms, Other (states he had cataract surgery today?) GI/Abdominal: Reports: Abdominal Pain, Constipation : Reports: Urinary Retention Musculoskeletal: Reports: Back Pain Skin: Reports: Lesions Neurological: Reports: No Symptoms Psychiatric: Reports: No Symptoms ED EXAM, GENERAL - Physical Exam Exam: See Below Exam Limited By: No Limitations General Appearance: Alert, WD/WN, Mild Distress Eye Exam: Bilateral Eye: EOMI, PERRL Ears: Normal TMs Head: Atraumatic, Normocephalic Neck: Normal Inspection Respiratory/Chest: No Respiratory Distress, Lungs Clear, Normal Breath Sounds, No Accessory Muscle Use, Chest Non-Tender Cardiovascular: Normal Peripheral Pulses, Regular Rate, Rhythm, No Edema, Other (left sided pacemaker, left upper arm AV fistula with + bruit/thrill) GI/Abdominal: Tender, Abnormal Bowel Sounds (hypoactive) Extremities: Normal Inspection, Normal Range of Motion, Normal Capillary Refill Neurological: Alert, Oriented, CN II-XII Intact Psychiatric: Normal Mood, Flat Affect Skin Exam: Warm, Dry, Wound/Incision (multiple open sores to hands and arms) Departure - Departure Time of Disposition: 22:50 Disposition: DC/Tfer to Acute Hospital 02 Condition: Good Clinical Impression: Pyelonephritis, acute - Discharge Information Forms: ED Department Discharge, Interfacility Transfer [facility] ED Communication - ED Communication Date/Time Date: 06/22/17 Time Called: 22:40 - Discussed Case With (1) Discussed Case With (1): Admitting Provider (Discussed case with Dr. Cui. He did accept care. Patient was started on 1.5 G IV Vancomycin and transferred to room 579 at [facility] in [place].) Person/s Notified (1): Crescencio Cui (He did accept care, ED provider also notified)
[2017-06-22] MEDS ORDERED: Morphine 4 MG/ML Syringe IVPUSH ONE (22:43)
== END 2017-06-22 22:57 | disposition short-term general hospital (02) ==
LOC: VM.ED 22:18
DX: N10 Acute pyelonephritis (principal); I25.10 Atherosclerotic heart disease of native coronary artery without angina pectoris; F32.9 Major depressive disorder, single episode, unspecified; I13.2 Hypertensive heart and chronic kidney disease with heart failure and with stage 5 chronic kidney disease, or end stage renal disease; I50.9 Heart failure, unspecified; N18.5 Chronic kidney disease, stage 5; E11.40 Type 2 diabetes mellitus with diabetic neuropathy, unspecified; E11.22 Type 2 diabetes mellitus with diabetic chronic kidney disease; F17.210 Nicotine dependence, cigarettes, uncomplicated; Z79.82 Long term (current) use of aspirin; Z79.899 Other long term (current) drug therapy
CPT/HCPCS: 96365; 99284; J2270; J3370; J7030; J7050

== ENCOUNTER 2017-10-24 21:42 | Emergency (ER) | payer MEDICARE, MEDICAID ==
[2017-10-24] MEDS ORDERED: Sodium Chloride 0.9% 1,000 ML IV ONE (21:46)
[2017-10-24] MEDS ORDERED: EPINEPHrine 1:10,000 1 MG/10 ML Syringe ONE ×2 (21:46)
--- NOTE | 2017-10-24 22:54 | EDM.PDOC ---
ED HPI GENERAL MEDICAL PROBLEM - General Chief Complaint: CPR in Progress Stated Complaint: cpr in progresss Time Seen by Provider: 10/24/17 21:58 Source of Information: Reports: Old Records History Limitations: Reports: Other (unresponsive) - History of Present Illness INITIAL COMMENTS - FREE TEXT/NARRATIVE: EMS called to domicile with reports of patient unresponsiveness. Police department reported weak pulses when ambulance arrived. They were able to get an IV, get him intubated, and he is brought in with compressions via suzy in progress. He is well known here at the ED with multiple comorbid conditions. He does receive dialysis on a M,W,F basis. Onset: Sudden - Related Data Allergies Allergy/AdvReac Type Severity Reaction Status Date / Time cefazolin Allergy Rash Verified 07/07/17 20:05 Home Meds: Home Meds Aspirin [Halfprin] 81 mg PO DAILY 01/06/15 [History] Labetalol [Normodyne] 200 mg PO BID 01/06/15 [History] Lisinopril 20 mg PO DAILY 01/06/15 [History] Simvastatin [Zocor] 1 tab PO BEDTIME 01/06/15 [History] Acetaminophen/Pamabrom [Cramp Tablet] 1 each PO BID PRN 05/05/15 [History] Calcium Acetate 3 tab PO TID 05/06/16 [History] Darbepoetin Jarod in Polysorbat [Aranesp] 0 - 150 mcg IJ ASDIRECTED 05/06/16 [ History] Doxercalciferol [Hectorol] 0 - 10 mcg IV ASDIRECTED 05/06/16 [History] Ergocalciferol (Vitamin D2) [Vitamin D2] 1 tab PO ASDIRECTED 05/06/16 [History] Melatonin 5 mg PO BEDTIME 05/06/16 [History] Sodium Ferric Gluconat/Sucrose [Ferrlecit 62.5 mg/5 ml Vial] 0 - 125 mg IV ASDIRECTED 05/06/16 [History] Triamcinolone Acetonide 1 applic TOP DAILY 05/06/16 [History] Vit B Cmplx NO3/Fa/C/Biot/Zinc [Nephplex Rx] 1 each PO DAILY 05/06/16 [History] Pregabalin [Lyrica] 75 mg PO BID 02/28/17 [History] prednisoLONE Acetate [Pred Forte 1% Ophth Susp] 1 drop EYELF DAILY 02/28/17 [ History] Pramipexole [Mirapex] 0.5 mg PO BEDTIME 03/10/17 [History] buPROPion [Wellbutrin XL] 150 mg PO DAILY 03/10/17 [History] hydrALAZINE HCl [Hydralazine HCl] 100 mg PO TID 03/10/17 [History] tiZANidine HCl [Tizanidine HCl] 2 mg PO ASDIRECTED PRN 06/21/17 [History] Levofloxacin [Levaquin] 750 mg PO Q48H 06/22/17 [History] Past Medical History Cardiovascular History: Reports: Angina, CAD, Heart Failure, High Cholesterol, Hypertension, PVD Respiratory History: Reports: Other (See Below) Other Respiratory History: dyspnea Gastrointestinal History: Reports: GERD, Hepatitis, PUD Genitourinary History: Reports: Dialysis, Renal Disease, Other (See Below) Other Genitourinary History: proteinuria. CKD Stage V Musculoskeletal History: Reports: Back Pain, Chronic Neurological History: Reports: Neuropathy, Diabetic Psychiatric History: Reports: Depression Endocrine/Metabolic History: Reports: Diabetes, Type II Hematologic History: Reports: Anemia Dermatologic History: Reports: Eczema - Infectious Disease History Infectious Disease History: Reports: Hepatitis C - Past Surgical History HEENT Surgical History: Reports: Cataract Surgery Musculoskeletal Surgical History: Reports: Carpal Tunnel, Other (See Below) Social & Family History - Tobacco Use Smoking Status *Q: Current Every Day Smoker Years of Tobacco use: 44 Packs/Tins Daily: 0.5 - Alcohol Use Days Per Week of Alcohol Use: 2 Number of Drinks Per Day: 1 Total Drinks Per Week: 2 - Recreational Drug Use Recreational Drug Use: Yes Drug Use in Last 12 Months: No Recreational Drug Type: Reports: Marijuana/Hashish ED ROS GENERAL - Review of Systems Review Of Systems: Unable To Obtain ED EXAM, CPR - Physical Exam Exam: See Below Limited By: Unresponsive General Appearance: Obtunded, Severe Distress Eye Exam: Bilateral Eye: Abnormal EOM (no movement or reaction to light), Other (scleral petechiae) Throat/Mouth: Other (7.5 ETT 21 at the lip, good and equal rise and fall of chest with breaths) Respiratory Chest: Other (7.5 ETT 21 at the lip, good and equal rise and fall of chest with breaths) Neurological: Unresponsive, Unresponsive Skin Exam: Cool, Mottled Course - Orders/Labs/Meds Orders: Active Orders 24 hr Category Date Time Status Chest 1V Frontal [CR] Stat Exams 10/24/17 21:58 Ordered Labs: Laboratory Tests 10/24/17 10/24/17 Range/Units 21:58 21:59 POC Sodium 138 (138-146) mmol/L POC Potassium > 9.0 H* (3.5-4.9) mmol/L POC Chloride 110 H (98-109) mmol/L POC Total CO2 17 L (24-29) mmol/L POC BUN 50 H (8-26) mg/dL POC Creatinine 5.9 H* (0.6-1.3) mg/dL POC Glucose < 20 L* (70-105) mg/dL POC Troponin I 6.71 H* (0.00-0.08) ng/mL POC Result Comm Called critical res Called critical res Departure - Departure Time of Disposition: 21:50 Disposition: 20 Preliminary Cause of *Q: Cardiac Arrest Clinical Impression: Cardiac arrest, Respiratory arrest - Discharge Information Forms: ED Department Discharge - Problem List & Annotations (1) Cardiac arrest SNOMED Code(s): 762477418 Code(s): I46.9 - CARDIAC ARREST, CAUSE UNSPECIFIED Status: Acute Current Visit: Yes (2) Respiratory arrest SNOMED Code(s): 60684718 Code(s): R09.2 - RESPIRATORY ARREST Status: Acute Current Visit: Yes - My Orders Last 24 Hours: My Active Orders 10/24/17 21:58 Chest 1V Frontal [CR] Stat - Assessment/Plan Last 24 Hours: My Active Orders 10/24/17 21:58 Chest 1V Frontal [CR] Stat Plan: Dr. Ruano contacted. No autopsy due to his chronic medical conditions.
[2017-10-25] MEDS ORDERED: EPINEPHrine 1:10,000 1 MG/10 ML Syringe ONE (00:07)
== END 2017-10-24 23:37 | disposition expired ==
LOC: VM.ED 21:42
DX: I46.9 Cardiac arrest, cause unspecified (principal); K21.9 Gastro-esophageal reflux disease without esophagitis; I50.9 Heart failure, unspecified; I13.2 Hypertensive heart and chronic kidney disease with heart failure and with stage 5 chronic kidney disease, or end stage renal disease; E11.22 Type 2 diabetes mellitus with diabetic chronic kidney disease; N18.5 Chronic kidney disease, stage 5; E11.40 Type 2 diabetes mellitus with diabetic neuropathy, unspecified; E78.00 Pure hypercholesterolemia, unspecified; Z88.8 Allergy status to other drugs, medicaments and biological substances; Z79.899 Other long term (current) drug therapy; F17.210 Nicotine dependence, cigarettes, uncomplicated
CPT/HCPCS: 36415; 71045; 80047; 84484; 92950; 96374; 99284-GF; 99285; J0171; J7030